=== PATIENT | male | born 1945 | race African-American/Black ===

== ENCOUNTER 2016-10-14 11:15 | Emergency (ER) | payer MEDICARE, OTHER ==
[~2016-10-14] VITALS: Ht 175.3 cm; Wt 86.6 kg
[2016-10-14] MEDS ORDERED: CORTISPORIN EAR10 ML OTIC (11:38)
[2016-10-14] MEDS ORDERED: AMOXICILLIN500 MG ORAL (11:38)
[2016-10-14 11:50] VITALS: BP 127/68
--- NOTE | 2016-10-16 06:10 | Emergency Room Report ---
History of Present Illness General Chief Complaint: Earache Source: Patient Present Illness HPI Patient presents with complaints of pain to the left ear Pain has been ongoing for the past 7 days however he also recently noticed discharge my site Denies any fevers he felt mildly weak Denies any neck pain or photophobia denies any chest pain or shortness of breath denies any trismus Allergies: Coded Allergies: No Known Allergies (Unverified , 10/14/16) Patient History Past Medical History: see triage record Pertinent Family History: none Reviewed Nursing Documentation: PMH: Agreed, PSxH: Agreed Nursing Documentation-PMH Past Medical History: No History, Except For Hx Hypertension: Yes Review of Systems All Other Systems: negative except mentioned in HPI Physical Exam Vital Signs Date Time Temp Pulse Resp B/P Pulse Ox O2 Delivery O2 Flow Rate FiO2 10/14/16 11:36 98.2 95 14 130/71 96 Room Air Sp02 EP Interpretation: reviewed, normal General Appearance: well appearing, no apparent distress Head: normocephalic, atraumatic Eyes: bilateral eye EOMI, bilateral eye PERRL ENT: normal pharynx, no angioedema, other - Tympanic membrane is erythematous and bulging, the canal is edematous with discharge, the swelling also involves the ear lobe itself Neck: supple Respiratory: chest non-tender, lungs clear Cardiovascular #1: regular rate, rhythm Gastrointestinal: non tender, soft Musculoskeletal: normal inspection Neurologic: alert, oriented x3 Skin: other - As noted above with the swelling of the canal of the left ear along with swelling of the ear itself Lymphatic: no adenopathy Medical Decision Making Diagnostic Impression: Primary Impression: otitis media Additional Impression: otitis externa ER Course Patient has significant findings of otitis media and externa At this time placed on the appropriate drops and oral medication Requires close followup Last Vital Signs Date Time Temp Pulse Resp B/P Pulse Ox O2 Delivery O2 Flow Rate FiO2 10/14/16 11:50 98.0 88 17 127/68 98 Room Air Status: unchanged Disposition: HOME, SELF-CARE Condition: Stable Scripts Neomycin/Polymyxin B Sulf/Hc* (CORTISPORIN EAR SOLUTION*) 10 Ml Solution 2 DROP OTIC FOUR TIMES A DAY for 10 Days, #1 EA Instill in affected ear as directed for 7 days Prov: SHAYY COOPER DYazmin 10/14/16 Amoxicillin* (AMOXIL*) 500 Mg Capsule 500 MG ORAL THREE TIMES A DAY, #30 CAP Prov: SHAYY COOPER D.O. 10/14/16 Referrals: NOT CHOSEN IPA/MD,REFERRING Patient Instructions: Otitis Externa, [id number], Otitis Media, Adult Additional Instructions: Patient is provided with the discharge instructions notified to follow up with primary doctor in the next 2-3 days otherwise return to the er with any worsening symptoms. Please note that this report is being documented using [employer] technology. This can lead to erroneous entry secondary to incorrect interpretation by the dictating instrument. SHAYY COOPER D.O. Oct 16, 2016 06:10
== END 2016-10-14 11:50 | disposition home or self-care (01) ==
LOC: EMR 11:40
DX: H66.92 Otitis media, unspecified, left ear (principal); H60.92 Unspecified otitis externa, left ear; I10 Essential (primary) hypertension
CPT/HCPCS: 99282

== ENCOUNTER 2016-10-22 14:43 | Emergency (ER) | payer MEDICARE, OTHER ==
[~2016-10-22] VITALS: Ht 175.3 cm; Wt 86.2 kg
[~2016-10-22 14:43] MED LIST: AMOXICILLIN500 MG ORAL; CORTISPORIN EAR10 ML OTIC
[2016-10-22 15:11] VITALS: BP 136/73
[2016-10-22] MEDS ORDERED: DiphenhydrAMINE 50mg/ml Inj IM ONE (15:15)
[2016-10-22] MEDS ORDERED: PredniSONE 20mg tab ORAL ONE (15:15)
[2016-10-22] MEDS ORDERED: BENADRYL25 MG ORAL (15:35)
[2016-10-22] MEDS ORDERED: DEBROX15 M1 RIGHT EAR (15:35)
[2016-10-22] MEDS ORDERED: CORTISPORIN EAR10 ML LEFT EAR (15:35)
[2016-10-22] MEDS ORDERED: PREDNISONE20 MG ORAL (15:35)
[2016-10-22 16:32] VITALS: BP 134/72
--- NOTE | 2016-10-22 19:36 | Emergency Room Report ---
History of Present Illness General Chief Complaint: Allergic Reaction Source: Patient Present Illness [facility] The patient is a 71-year-old male presenting for left ear pain and possible allergic reaction. The patient was seen for left ear pain and diagnosed with otitis externa. He was given a prescription for Cortisporin and amoxicillin. The patient was taking these medications as recommended but then developed a rash of the face, itchy eyes, and a scratchy throat. He has never had an allergic reaction to medication in the past. He does not know of any allergies. Patient still has a 10 out of 10 dull ache to the left ear and it does not radiate. Pain worse with touch. He denies any changes in hearing. He denies any other symptoms including fever, chills, chest pain, shortness of breath, cough, changes in vision, headache, dizziness Allergies: Coded Allergies: No Known Allergies (Unverified , 10/14/16) Patient History Past Medical History: see triage record Pertinent Family History: none Reviewed Nursing Documentation: PMH: Agreed, PSxH: Agreed Nursing Documentation-PMH Past Medical History: No Stated History Hx Hypertension: Yes Review of Systems All Other Systems: negative except mentioned in HPI Physical Exam Vital Signs Date Time Temp Pulse Resp B/P Pulse Ox O2 Delivery O2 Flow Rate FiO2 10/22/16 14:55 97.9 74 12 136/73 97 Room Air Sp02 EP Interpretation: reviewed, normal General Appearance: no apparent distress, alert, GCS 15, non-toxic Head: normocephalic, atraumatic Eyes: bilateral eye EOMI, bilateral eye Scleral Injection, bilateral eye other - erythema and edema to bilat eyelids ENT: hearing grossly normal, normal pharynx, no angioedema, normal voice, other - L ear EAC edema, erythema, white DC. TTP to tragus Neck: full range of motion, supple/symm/no masses Musculoskeletal: back normal, gait/station normal, normal range of motion, non- tender Neurologic: alert, oriented x3, responsive, motor strength/tone normal, sensory intact, speech normal Psychiatric: judgement/insight normal, memory normal, mood/affect normal, no suicidal/homicidal ideation Skin: normal color, no rash, warm/dry, well hydrated Lymphatic: no adenopathy Medical Decision Making PA Attestation Dr. Navarrete is my supervising physician. Patient management was discussed with my supervising physician Diagnostic Impression: Primary Impression: Cerumen impaction Qualified Codes: H61.21 - Impacted cerumen, right ear Additional Impressions: Allergic reaction Qualified Codes: T78.40XA - Allergy, unspecified, initial encounter Otitis externa of left ear Qualified Codes: H60.332 - Swimmer's ear, left ear ER Course The patient is a 71-year-old male presenting for left ear pain and possible allergic reaction Differential diagnosis include but not limited to allergic reaction, cellulitis , otitis externa, otitis media, mastoiditis, sinusitis, pharyngitis Physical exam: Vitals within normal limits. No apparent distress. HEENT: Left ear external auditory canal is erythematous and edematous. TTP to L tragus.White discharge is noted. Tympanic membrane is intact. No bulging. R ear cerumen impaction There is erythema and edema to bilateral eyelids with conjunctival injection Oropharynx is patent. No tonsillar edema. No angioedema Otherwise exam is unremarkable The patient is given Benadryl and prednisone and is feeling better. The patient will be discharged home with a prescription for Cortisporin. He will stop taking the amoxicillin as this is most likely the cause of the allergic reaction. The patient will take Benadryl and prednisone and continue to use Cortisporin. ER precautions are given Last Vital Signs Date Time Temp Pulse Resp B/P Pulse Ox O2 Delivery O2 Flow Rate FiO2 10/22/16 16:32 97.9 73 16 134/72 97 Room Air Status: improved Disposition: HOME, SELF-CARE Condition: Improved Scripts Diphenhydramine Hcl* (BENADRYL*) 25 Mg Capsule 25 MG ORAL Q6H Y for Itching, #15 CAP Prov: TERZIAN,AMELIE P.A. 10/22/16 Prednisone* (PREDNISONE*) 20 Mg Tablet 40 MG ORAL DAILY, #8 TAB Prov: TERZIAN,AMELIE P.A. 10/22/16 Neomycin/Polymyxin B Sulf/Hc* (CORTISPORIN EAR SOLUTION*) 10 Ml Solution 4 DROP LEFT EAR QID, #10 ML 0 Refills Prov: TERZIAN,AMELIE P.A. 10/22/16 Carbamide Peroxide (DEBROX) 15 Ml Drops 5 DROP RIGHT EAR TWICE A DAY for 4 Days, ML 0 Refills Prov: TERZIAN,AMELIE P.A. 10/22/16 Referrals: NON PHYSICIAN (PCP) Patient Instructions: Cerumen Impaction, Otitis Externa, Drug Allergy Additional Instructions: I discussed my findings with the patient. All questions and concerns have been answered. Treatment and medication compliance have been addressed. I advised the patient that they need to follow up with PMD in 3-5 days. Return to ED if symptoms worsen, new symptoms arise, or if needed for any reason. Patient verbalized understanding of discharge instructions. AMELIE OROZCO October 22, 2016 19:35
== END 2016-10-22 16:35 | disposition home or self-care (01) ==
LOC: EMR 15:28
DX: H61.20 Impacted cerumen, unspecified ear (principal); T78.1XXA Other adverse food reactions, not elsewhere classified, initial encounter; X58.XXXA Exposure to other specified factors, initial encounter; H60.92 Unspecified otitis externa, left ear; I10 Essential (primary) hypertension
CPT/HCPCS: 96372; 99284; J1200

== ENCOUNTER 2017-01-02 11:24 | Emergency (ER) | payer MEDICARE, OTHER ==
[~2017-01-02] VITALS: Ht 175.3 cm; Wt 86.2 kg
[~2017-01-02 11:24] MED LIST changes: +BENADRYL25 MG ORAL; +CORTISPORIN EAR10 ML LEFT EAR; +DEBROX15 M1 RIGHT EAR; +PREDNISONE20 MG ORAL
[2017-01-02 11:40] VITALS: BP 142/79
[2017-01-02 12:17] VITALS: BP 142/79
[2017-01-02] MEDS ORDERED: KEFLEX500 MG ORAL (12:22)
[2017-01-02] MEDS ORDERED: BENADRYL25 M3 PO (12:22)
--- NOTE | 2017-01-02 13:56 | Emergency Room Report ---
History of Present Illness General Chief Complaint: Skin Rash/Abscess Present Illness HPI 71YOM with left lower extremity swelling, redness, warmth and itch ?insect bite No other affected areas Denies DM, history of cellulitis/abscess Allergies: Coded Allergies: No Known Allergies (Unverified , 10/14/16) Patient History Past Medical History: none Past Surgical History: none Pertinent Family History: none Social History: Denies: alcohol use, drug use, smoking Immunizations: UTD Reviewed Nursing Documentation: PMH: Agreed, PSxH: Agreed Nursing Documentation-PMH Hx Hypertension: Yes Review of Systems All Other Systems: negative except mentioned in HPI Physical Exam Vital Signs Date Time Temp Pulse Resp B/P Pulse Ox O2 Delivery O2 Flow Rate FiO2 01/02/17 11:31 98.1 95 20 142/79 100 Room Air Sp02 EP Interpretation: reviewed, normal General Appearance: normal inspection, well appearing, no apparent distress, alert Head: atraumatic ENT: normal ENT inspection, hearing grossly normal, normal voice Neck: normal inspection, full range of motion, supple, no bony tend Respiratory: normal inspection, lungs clear, normal breath sounds, no respiratory distress, no retraction, no wheezing Cardiovascular #1: regular rate, rhythm, no edema Gastrointestinal: normal inspection, normal bowel sounds, non tender, soft, no guarding, no hernia Genitourinary: no CVA tenderness Musculoskeletal: normal inspection, back normal, normal range of motion, Reyna' s Sign negative Neurologic: normal inspection, alert, oriented x3, responsive, comparative sociology professor III-XII nml as tested, motor strength/tone normal, speech normal Psychiatric: normal inspection, judgement/insight normal, mood/affect normal Skin: normal inspection, other - Left outer lower extremity: 5cm area of erythema, palpable warmth Medical Decision Making Diagnostic Impression: Primary Impression: Cellulitis and abscess of left lower extremity ER Course Cellulitis of left lower leg Afebrile. No systemic symptoms Rx Keflex DC home PMD followup Last Vital Signs Date Time Temp Pulse Resp B/P Pulse Ox O2 Delivery O2 Flow Rate FiO2 01/02/17 12:17 98.1 95 20 142/79 100 Room Air Status: improved Disposition: HOME, SELF-CARE Condition: Improved Scripts Diphenhydramine HCl (Benadryl) 25 Mg Capsule 25 MG PO TID for Itching for 7 Days, #30 CAP Prov: DAYANA GARCIA M.D. 01/02/17 Cephalexin* (KEFLEX*) 500 Mg Capsule 500 MG ORAL Q6H for 7 Days, #28 CAP 0 Refills Prov: DAYANA GARCIA M.D. 01/02/17 Referrals: NON PHYSICIAN (PCP) Patient Instructions: Rash, Cellulitis, [id number] DAYANA GARCIA M.D. Jan 02, 2017 13:55
== END 2017-01-02 12:34 | disposition home or self-care (01) ==
LOC: EMR 11:58
DX: L03.116 Cellulitis of left lower limb (principal); I10 Essential (primary) hypertension
CPT/HCPCS: 99284

== ENCOUNTER 2017-03-09 14:55 | Emergency (ER) | payer MEDICARE, OTHER ==
[~2017-03-09] VITALS: Ht 175.3 cm; Wt 84.4 kg
[~2017-03-09 14:55] MED LIST changes: +BENADRYL25 M3 PO; +KEFLEX500 MG ORAL
[2017-03-09] MEDS ORDERED: UNOBMED (15:07)
[2017-03-09] MEDS ORDERED: Azithromycin 250mg tab ORAL ONE (15:30)
[2017-03-09 15:31] VITALS: BP 118/72
[2017-03-09] MEDS ORDERED: KEFLEX500 MG ORAL (16:02)
[2017-03-09] MEDS ORDERED: CLOTRIMAZOLE15 GM TOPIC (16:02)
[2017-03-09 16:08] VITALS: BP 118/72
--- NOTE | 2017-03-11 09:48 | Emergency Room Report ---
History of Present Illness General Chief Complaint: Male Urogenital Problems Source: Patient Present Illness HPI 72-year-old male presents ED for evaluation. Patient states he has a bump on his penis and scrotal area for the last week. Patient was seen by PMD 2 days ago and was prescribed acyclovir. Patient states it is not improving so he came to the ER. Patient states just prior to onset of symptoms she did have unprotected sex. Denies any discharge. States it is painful, 6/10, sharp, nonradiating. No other aggravating relieving factors. Denies any other associated symptoms Allergies: Coded Allergies: PENICILLINS (Verified Allergy, Unknown, 03/09/17) Patient History Past Medical History: HTN Past Surgical History: none Pertinent Family History: none Social History: Denies: smoking, alcohol use, drug use Immunizations: UTD Reviewed Nursing Documentation: PMH: Agreed, PSxH: Agreed Nursing Documentation-PMH Hx Hypertension: Yes Review of Systems All Other Systems: negative except mentioned in HPI Physical Exam Vital Signs Date Time Temp Pulse Resp B/P (MAP) Pulse Ox O2 Delivery O2 Flow Rate FiO2 03/09/17 15:01 97.7 90 16 118/72 96 Room Air Sp02 EP Interpretation: reviewed, normal General Appearance: no apparent distress, alert, GCS 15, non-toxic Head: normocephalic, atraumatic Eyes: bilateral eye normal inspection, bilateral eye PERRL ENT: hearing grossly normal, normal pharynx, no angioedema, normal voice Neck: full range of motion, supple/symm/no masses Respiratory: chest non-tender, lungs clear, normal breath sounds, speaking full sentences Cardiovascular #1: regular rate, rhythm, no edema Cardiovascular #2: 2+ carotid (R), 2+ carotid (L), 2+ radial (R), 2+ radial (L) , 2+ dorsalis pedis (R), 2+ dorsalis pedis (L) Gastrointestinal: normal bowel sounds, non tender, soft, non-distended, no guarding, no rebound Rectal: deferred Genitourinary: no CVA tenderness, other - small papule on penile head. erythematous papules to scrotum. no induration or discharge Musculoskeletal: back normal, gait/station normal, normal range of motion, non- tender Neurologic: alert, oriented x3, responsive, motor strength/tone normal, sensory intact, speech normal Psychiatric: judgement/insight normal, memory normal, mood/affect normal, no suicidal/homicidal ideation Reflexes: 3+ bicep (R), 3+ bicep (L), 3+ tricep (R), 3+ tricep (L), 3+ knee (R) , 3+ knee (L) Skin: normal color, no rash, warm/dry, well hydrated Lymphatic: no adenopathy Medical Decision Making Diagnostic Impression: Primary Impression: Herpes simplex infection of penis ER Course Hospital Course 72-year-old male presents to ED with rash/pain to penis Differential diagnoses include: Cellulitis, dermatitis, insect bite, abscess Clinical course Patient placed on stretcher. After initial history, physical exam reveals an elderly male in no acute distress. On exam there are multiple papular lesions noted to the penis and scrotal area. nonerythematous but nonerythematous base. No discharge. patient was prescribed states it is not helping. I explain to the patient that his symptoms will not resolved in 2 days. Given his history, i believe acyclovir is a good choice of medication and he should continue it. We will administer Rocephin/azithromycin here, discharged on Keflex and clotrimazole recommend followup with PMD next week Diagnosis - herpes simplex infection of penis stable and discharged to home with prescription for Ketoconazole, keflex. continue acyclovir as directed. Instructed to followup with PMD. Instructed return to ED if symptoms recur or worsen Last Vital Signs Date Time Temp Pulse Resp B/P (MAP) Pulse Ox O2 Delivery O2 Flow Rate FiO2 03/09/17 16:08 97.7 72 16 118/72 96 Room Air Status: improved Disposition: HOME, SELF-CARE Condition: Stable Scripts Clotrimazole* (LOTRIMIN*) 15 Gm Cream..g. 1 APPLIC TOPIC TWICE A DAY, #15 GM Prov: KIANA SAAVEDRA M.D. 03/09/17 Cephalexin* (KEFLEX*) 500 Mg Capsule 500 MG ORAL Q6H, #28 CAP 0 Refills Prov: KIANA SAAVEDRA M.D. 03/09/17 Patient Instructions: Herpes Simplex Test KIANA SAAVEDRA M.D. Mar 11, 2017 09:48
== END 2017-03-09 16:09 | disposition home or self-care (01) ==
LOC: EMR 15:40
DX: A60.01 Herpesviral infection of penis (principal); I10 Essential (primary) hypertension; Z88.0 Allergy status to penicillin
CPT/HCPCS: 96372; 99284; J0696

== ENCOUNTER 2017-03-16 11:17 | Emergency (ER) | payer MEDICARE, OTHER ==
[~2017-03-16] VITALS: Ht 175.3 cm; Wt 85.3 kg
[~2017-03-16 11:17] MED LIST changes: +CLOTRIMAZOLE15 GM TOPIC; +UNOBMED
[2017-03-16 11:25] VITALS: BP 149/84
[2017-03-16 12:42] LABS: APPEARANCE,URINE SLIGHTLY CLOUDY; KETONES,URINE 1+ (NEGATIVE); LEUKOCYTE ESTERASE ,URINE 1+ (NEGATIVE); NITRITE,URINE NEGATIVE (NEGATIVE); PH,URINE 6 (4.5-8.0); PROTEIN,URINE 1+ (NEGATIVE); UROBILINOGEN,URINE NORMAL MG/DL (0.0-1.0)
[2017-03-16 12:50] LABS: BACTERIA,URINE FEW /HPF; MUCUS,URINE MODERATE /LPF (NONE/OCC); SQUAMOUS EPITHELIAL CELL,UR FEW /LPF (NONE/OCC)
--- NOTE | 2017-03-16 12:54 | Emergency Room Report ---
History of Present Illness General Chief Complaint: Male Urogenital Problems Source: Patient Present Illness HPI 72 YO Male presents to the ED c/o continued Testicular pruritis despite using previously prescribed Keflex,clotrimazole cream, and taking Acyclovir. pt. states he has follow up appt. with his PCP tomorrow , and is scheduled to have Herpes testing done. pt. states moderate itching continues. Pt. finished both Keflex and clotrimazole cream, he states he still has three more pills of acyclovir to take. pt. denies new skin lesions, denies erythema. pt. states he has also been applying jock itch powder. 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 denies recent intercourse since being previously evaluated here in the ED. Denies testicular pain, swelling, penile discharge, swollen tender lymph nodes. Denies skin color changes. Denies dysuria, hematuria, or frequency. Denies lesions/rashes elsewhere on the body. Denies new medications or body washes or creams. Denies swelling of the lips, tongue , throat or airway. Denies wheezing, or shortness of breath. Denies recent travel, recent illness or ill contacts. denies blisters, oral lesions, or sloughing of the skin. Denies CP, Palpitations, LOC, AMS, dizziness, Changes in Vision, Sensation , paresthesias, or a sudden severe headache. Allergies: Coded Allergies: PENICILLINS (Verified Allergy, Unknown, 03/09/17) Patient History Past Medical History: asthma Past Surgical History: none Pertinent Family History: none Immunizations: UTD Reviewed Nursing Documentation: PMH: Agreed, PSxH: Agreed Nursing Documentation-PMH Hx Hypertension: Yes Review of Systems All Other Systems: negative except mentioned in HPI Physical Exam Vital Signs Date Time Temp Pulse Resp B/P (MAP) Pulse Ox O2 Delivery O2 Flow Rate FiO2 03/16/17 11:25 97.9 95 16 149/84 98 Room Air Sp02 EP Interpretation: reviewed, normal General Appearance: no apparent distress, alert, GCS 15, non-toxic Head: normocephalic, atraumatic Eyes: bilateral eye normal inspection, bilateral eye PERRL ENT: hearing grossly normal, normal voice Neck: full range of motion Respiratory: lungs clear, normal breath sounds, no wheezing, speaking full sentences Cardiovascular #1: regular rate, rhythm Gastrointestinal: normal bowel sounds, non tender, soft, no guarding, no rebound Rectal: deferred Genitourinary: normal inspection, no CVA tenderness, penis normal, other - cremasteric reflux intact bilaterally. no testicular swelling. Musculoskeletal: back normal, gait/station normal, normal range of motion, non- tender Neurologic: alert, oriented x3, responsive, motor strength/tone normal, sensory intact, speech normal, other - cremasteric reflux intact bilaterally. Psychiatric: judgement/insight normal, memory normal, mood/affect normal Skin: normal color, warm/dry, well hydrated, rash - very small superficial mildly macerated appearance to anterior scrotum in an area no more than 1cm, no discrete boarder, or lesion, no vessicles, no blisters. Lymphatic: no adenopathy Medical Decision Making PA Attestation Dr. Epps is my supervising Physician whom patient management has been discussed with. Diagnostic Impression: Primary Impression: Rash and other nonspecific skin eruption Additional Impressions: Dermatitis UTI (urinary tract infection) Qualified Codes: N30.01 - Acute cystitis with hematuria ER Course 72 YO Male presents to the ED c/o continued Testicular Pruritus despite using previously prescribed Keflex,clotrimazole cream, and taking Acyclovir. pt. states he has follow up appt. with his PCP tomorrow , and is scheduled to have Herpes testing done. pt. states moderate itching continues. Pt. finished both Keflex and clotrimazole cream, he states he still has three more pills of acyclovir to take. pt. denies new skin lesions, denies erythema. pt. states he has also been applying jock itch powder. 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 denies recent intercourse since being previously evaluated here in the ED. Denies testicular pain, swelling, penile discharge, swollen tender lymph nodes. Denies skin color changes. Denies dysuria, hematuria, or frequency. Denies lesions/rashes elsewhere on the body. Denies new medications or body washes or creams. Denies swelling of the lips, tongue , throat or airway. Denies wheezing, or shortness of breath. Denies recent travel, recent illness or ill contacts. denies blisters, oral lesions, or sloughing of the skin. Denies CP, Palpitations, LOC, AMS, dizziness, Changes in Vision, Sensation , paresthesias, or a sudden severe headache. Ddx considered but are not limited to cellulitis, scabies, shingles, varicella, dermatitis, urticaria, eczema, tinea, viral exanthem, SJS Vital signs: are WNL, pt. is afebrile H&PE are most consistent with scrotal dermatitis, no lesions, no evidence of secondary infection, no testicular swelling, tenderness, or penile d/c, no LAD. * home care provider: Oz was my aquatic instructor for physical exam ORDERS: -UA: increased WBC's, Leuks, presence of bacteria and mucus consistent with urinary tract infection. ED INTERVENTIONS: None required at this time. -D/w pt. results of his urine testing. encouraged pt. to ask PCP for field auditor referral at tomorrow appt. DISCHARGE: At this time pt. is stable for d/c to home. Will provide printed patient care instructions, and any necessary prescriptions. Care plan and follow up instructions have been discussed with the patient prior to discharge. Labs Test 03/16/17 12:35 Urine Color Yellow Urine Appearance Slightly cloudy Urine pH 6 (4.5-8.0) Urine Specific [place] 1.015 (1.005-1.035) Urine Protein 1+ (NEGATIVE) Urine Glucose (UA) 1+ (NEGATIVE) Urine Ketones 1+ (NEGATIVE) Urine Occult Blood 2+ (NEGATIVE) Urine Nitrite Negative (NEGATIVE) Urine Bilirubin Negative (NEGATIVE) Urine Urobilinogen Normal MG/DL (0.0-1.0) Urine Leukocyte Esterase 1+ (NEGATIVE) Urine RBC 2-4 /HPF (0 - 0) Urine WBC 5-10 /HPF (0 - 0) Urine Squamous Epithelial Cells Few /LPF (NONE/OCC) Urine Bacteria Few /HPF (NONE) Urine Mucus Moderate /LPF (NONE/OCC) Last Vital Signs Date Time Temp Pulse Resp B/P (MAP) Pulse Ox O2 Delivery O2 Flow Rate FiO2 03/16/17 11:25 97.9 95 16 149/84 98 Room Air Disposition: HOME, SELF-CARE Condition: Stable Scripts Nitrofurantoin Monohyd/M-Cryst* (MACROBID 100 MG*) 100 Mg Capsule 100 MG ORAL EVERY 12 HOURS for 5 Days, #10 CAP Prov: Stefani Momin 03/16/17 Hydrocortisone (Hydrocortisone Cream 2.5%) Y Cream.appl 1 APPLIC TP BID, #28.3 GM Prov: Stefani Momin 03/16/17 Nystatin* (NYSTATIN*) 15 Gm Cream..g. 1 APPLIC TOPIC THREE TIMES A DAY, #15 GM 1 Refill Prov: Stefani Momin 03/16/17 Patient Instructions: Rash, [id number], Urinary Tract Infection Additional Instructions: Take medications as directed. Follow up with a Primary Care Provider in 3-5 days, even if your symptoms have resolved. ANALYTICS LEADER EVALUATION IS RECOMMENDED. Return sooner to ED if new symptoms occur, or current symptoms become worse. - Please note that this Emergency Department Report was dictated using [place] [employer] continuity inspector technology software, occasionally this can lead to erroneous entry secondary to interpretation by the dictation equipment. Stefani Momin Mar 16, 2017 12:54
[2017-03-16] MEDS ORDERED: NITROFURANTOIN100 M2 ORAL (13:00)
[2017-03-16] MEDS ORDERED: HYDROCORTISONE30 G2 TP (13:00)
[2017-03-16] MEDS ORDERED: NYSTATIN15 GM TOPIC (13:00)
[2017-03-16 13:11] VITALS: BP 149/84
== END 2017-03-16 13:12 | disposition home or self-care (01) ==
LOC: EMR 13:10
DX: L30.9 Dermatitis, unspecified (principal); N39.0 Urinary tract infection, site not specified; Z88.0 Allergy status to penicillin
CPT/HCPCS: 81003; 99284

== ENCOUNTER 2017-06-11 12:34 | Emergency (ER) | payer MEDICARE, OTHER ==
[~2017-06-11] VITALS: Ht 175.3 cm; Wt 83.0 kg
[~2017-06-11 12:34] MED LIST changes: +HYDROCORTISONE30 G2 TP; +NITROFURANTOIN100 M2 ORAL; +NYSTATIN15 GM TOPIC
[2017-06-11] MEDS ORDERED: FUROSEMIDE40 MG ORAL (12:49)
[2017-06-11] MEDS ORDERED: ASPIRIN EC81 MG ORAL (12:49)
[2017-06-11] MEDS ORDERED: FOLIC ACID1 MG ORAL (12:49)
[2017-06-11] MEDS ORDERED: AVODART0.5 MG ORAL (12:49)
[2017-06-11] MEDS ORDERED: DIAZEPAM10 MG ORAL (12:49)
[2017-06-11] MEDS ORDERED: UNOBMED (12:49)
[2017-06-11 13:13] LABS: APPEARANCE,URINE CLEAR; KETONES,URINE NEGATIVE (NEGATIVE); LEUKOCYTE ESTERASE ,URINE NEGATIVE (NEGATIVE); NITRITE,URINE NEGATIVE (NEGATIVE); PH,URINE 7 (4.5-8.0); PROTEIN,URINE NEGATIVE (NEGATIVE); UROBILINOGEN,URINE NORMAL MG/DL (0.0-1.0)
[2017-06-11] MEDS ORDERED: ACYCLOVIR200 MG ORAL (13:41)
[2017-06-11] MEDS ORDERED: PROAIR HFA8.5 GM INH (13:41)
[2017-06-11] MEDS ORDERED: PROMETHAZINE-D118 ML ORAL (13:41)
[2017-06-11 13:55] VITALS: BP 165/78
--- NOTE | 2017-06-11 22:43 | Emergency Room Report ---
History of Present Illness General Chief Complaint: General Complaint Source: Patient Present Illness HPI The patient is a 72-year-old male presenting for multiple complaints including lesions on penis, cough, and subjective fever. He states that he does have history of herpes and this feels the same. he noticed these lesions yesterday at the tip of his penis. There is a 3/10 burning sensation. Does not radiate. He denies any dysuria or hematuria penile discharge. He has had subjective fever and cough for the past week. He denies any known sick contacts or recent travel. He admits to having asthma but denies any other conditions. Allergies: Coded Allergies: PENICILLINS (Verified Allergy, Unknown, 03/09/17) Patient History Past Medical History: see triage record Pertinent Family History: none Reviewed Nursing Documentation: PMH: Agreed, PSxH: Agreed Nursing Documentation-PMH Hx Hypertension: Yes Review of Systems All Other Systems: negative except mentioned in HPI Physical Exam Vital Signs Date Time Temp Pulse Resp B/P (MAP) Pulse Ox O2 Delivery O2 Flow Rate FiO2 06/11/17 12:38 97.9 87 18 148/84 98 Room Air Sp02 EP Interpretation: reviewed, normal General Appearance: no apparent distress, alert, GCS 15, non-toxic Head: normocephalic, atraumatic Eyes: bilateral eye normal inspection, bilateral eye PERRL ENT: hearing grossly normal, normal pharynx, no angioedema, normal voice Neck: full range of motion, supple/symm/no masses Respiratory: normal inspection, no respiratory distress, no accessory muscle use, wheezing - bilat Cardiovascular #1: regular rate, rhythm, no edema Gastrointestinal: normal bowel sounds, non tender, soft, non-distended, no guarding, no rebound Genitourinary: no CVA tenderness, scrotum normal, other - several herpetic lesion < 1cm at tip of penis Musculoskeletal: back normal, gait/station normal, normal range of motion Neurologic: alert, oriented x3, responsive, motor strength/tone normal, sensory intact, speech normal Psychiatric: judgement/insight normal, memory normal, mood/affect normal, no suicidal/homicidal ideation Skin: warm/dry, well hydrated Lymphatic: no adenopathy Medical Decision Making PA Attestation Dr. Davis is my supervising physician. Patient management was discussed with my supervising physician Diagnostic Impression: Primary Impression: Bronchitis Additional Impression: Herpes ER Course The patient is a 72-year-old male presenting for multiple complaints including lesions on penis, cough, and subjective fever. Differential diagnosis include but not limited to pharyngitis, sinusitis, AOM, bronchitis, PNA Differential diagnoses considered but not limited to: Gonorrhea, Chlamydia, herpes, urinary tract infection, among others PE: afebrile. No tachypnea. No apparent distress. No TTP over maxillary or frontal sinuses. Lungs: diffuse wheezing. No accessory muscle use. No resp distress Heart: RRR, no abnormal heart sounds Ears: external auditory canal clear. Non erythematous. Bilat TM intact. Cone of light present bilat. No bulging of TM. No serous fluid seen. no nasal D/C Nor cervical lymphad No tonsillar exudate. Uvula midline.Oropharynx non erythematous : There are multiple herpetic lesions at the tip of penis. Shallow ulcers. No discharge. Scrotum is unremarkable. Nontender. Skin warm and dry. No rash UA unremarkable The patient will be discharged home with a prescription for Antivirals, albuterol, cough medication, and will be d/c'ed home Laboratory Tests Test 06/11/17 12:50 Urine Color Pale yellow Urine Appearance Clear Urine pH 7 (4.5-8.0) Urine Specific [place] 1.015 (1.005-1.035) Urine Protein Negative (NEGATIVE) Urine Glucose (UA) Negative (NEGATIVE) Urine Ketones Negative (NEGATIVE) Urine Occult Blood Negative (NEGATIVE) Urine Nitrite Negative (NEGATIVE) Urine Bilirubin Negative (NEGATIVE) Urine Urobilinogen Normal MG/DL (0.0-1.0) Urine Leukocyte Esterase Negative (NEGATIVE) Lab Results Impression No signs of infection Last Vital Signs Date Time Temp Pulse Resp B/P (MAP) Pulse Ox O2 Delivery O2 Flow Rate FiO2 06/11/17 13:55 72 16 165/78 98 Room Air 06/11/17 13:55 97.9 Status: improved Disposition: HOME, SELF-CARE Condition: Improved Scripts D-Methorphan Hb/Prometh Hcl* (PROMETHAZINE-DM SYRUP*) 118 Ml Syrup 5 ML ORAL Q6H Y for For Cough, #118 ML 0 Refills Prov: TERZIAMELIE GALEANA P.A. 06/11/17 Albuterol Sulfate* (PROAIR HFA*) 8.5 Gm Hfa.aer.ad 2 PUFFS INH Q6H, #8.5 GM 0 Refills Prov: AMELIE OROZCO 06/11/17 Acyclovir* (ACYCLOVIR*) 200 Mg Capsule 200 MG ORAL FIVE TIMES A DAY, #50 CAP Prov: AMELIE OROZCO 06/11/17 Patient Instructions: Contact Precautions, Genital Herpes, Acute Bronchitis Additional Instructions: I discussed my findings with the patient. All questions and concerns have been answered. Treatment and medication compliance have been addressed. I advised the patient that they need to follow up with PMD in 3-5 days. Return to ED if symptoms worsen, new symptoms arise, or if needed for any reason. Patient verbalized understanding of discharge instructions. AMELIE OROZCO Jun 11, 2017 22:43
== END 2017-06-11 13:55 | disposition home or self-care (01) ==
LOC: EMR 12:58
DX: J40 Bronchitis, not specified as acute or chronic (principal); B00.9 Herpesviral infection, unspecified; I10 Essential (primary) hypertension; Z88.0 Allergy status to penicillin
CPT/HCPCS: 81003; 96360; 99284

== ENCOUNTER 2017-09-15 16:02 | Emergency (ER) | payer MEDICARE, OTHER ==
[~2017-09-15] VITALS: Ht 175.3 cm; Wt 83.0 kg
[~2017-09-15 16:02] MED LIST changes: +ACYCLOVIR200 MG ORAL; +ASPIRIN EC81 MG ORAL; +AVODART0.5 MG ORAL; +DIAZEPAM10 MG ORAL; +FOLIC ACID1 MG ORAL; +FUROSEMIDE40 MG ORAL; +PROAIR HFA8.5 GM INH; +PROMETHAZINE-D118 ML ORAL
[2017-09-15 16:42] VITALS: BP 137/97
[2017-09-15] MEDS ORDERED: PROMETHAZINE-C118 M1 ORAL (17:01)
[2017-09-15] MEDS ORDERED: LEVAQUIN750 MG ORAL (17:01)
[2017-09-15 17:16] VITALS: BP 148/74
--- NOTE | 2017-09-15 17:52 | Emergency Room Report ---
History of Present Illness General Chief Complaint: Flu Like Symptoms Source: Patient Present Illness HPI 72-year-old male presents ED for evaluation. Patient states the last month he' s been having a productive cough, body aches and chills. Afebrile in triage. States cough is productive with yellowish phlegm. Denies chest pain or shortness of breath. States he did receive the flu vaccine this year. Denies sick contacts or recent travel. No other aggravating relieving factors. Denies any other associated symptoms Allergies: Coded Allergies: PENICILLINS (Verified Allergy, Unknown, 03/09/17) Patient History Past Medical History: HTN Past Surgical History: none Pertinent Family History: none Social History: Denies: smoking, alcohol use, drug use Immunizations: UTD Reviewed Nursing Documentation: PMH: Agreed; PSxH: Agreed Nursing Documentation-PMH Past Medical History: No History, Except For Hx Hypertension: Yes Review of Systems All Other Systems: negative except mentioned in HPI Physical Exam Vital Signs Date Time Temp Pulse Resp B/P (MAP) Pulse Ox O2 Delivery O2 Flow Rate FiO2 09/15/17 16:08 98.2 85 18 149/89 96 Room Air 98.2 Sp02 EP Interpretation: reviewed, normal General Appearance: no apparent distress, alert, GCS 15, non-toxic Head: normocephalic, atraumatic Eyes: bilateral eye normal inspection, bilateral eye PERRL ENT: hearing grossly normal, normal pharynx, no angioedema, normal voice Neck: full range of motion, supple/symm/no masses Respiratory: chest non-tender, normal breath sounds, crackles, speaking full sentences Cardiovascular #1: regular rate, rhythm, no edema Cardiovascular #2: 2+ carotid (R), 2+ carotid (L), 2+ radial (R), 2+ radial (L) , 2+ dorsalis pedis (R), 2+ dorsalis pedis (L) Gastrointestinal: normal bowel sounds, non tender, soft, non-distended, no guarding, no rebound Rectal: deferred Genitourinary: normal inspection, no CVA tenderness Musculoskeletal: back normal, gait/station normal, normal range of motion, non- tender Neurologic: alert, oriented x3, responsive, motor strength/tone normal, sensory intact, speech normal Psychiatric: judgement/insight normal, memory normal, mood/affect normal, no suicidal/homicidal ideation Reflexes: 3+ bicep (R), 3+ bicep (L), 3+ tricep (R), 3+ tricep (L), 3+ knee (R) , 3+ knee (L) Skin: normal color, no rash, warm/dry, well hydrated Lymphatic: no adenopathy Medical Decision Making Diagnostic Impression: Primary Impression: Pneumonia Qualified Codes: J18.1 - Lobar pneumonia, unspecified organism ER Course Hospital Course 72-year-old male presents ED complaining of bodyaches, chills and cough x1 month Differential diagnoses include: URI, pharyngitis, otitis media, asthma Clinical course Patient placed on stretcher. After initial history, physical exam reveals an elderly in no acute distress. Bilateral TM unremarkable. No pharyngeal erythema. No tonsillar exudates. No lymphadenopathy. faint crackles in L lower lung base. abdomen soft. CXR shows atelectasis in L lower lung field. possible pneumonia. discussed findings with patient. I will prescribe abx Diagnosis - pneumonia Stable and discharged home with Rx Levaquin, Promethazine/codeine Instructed to followup with PMD. Return to ED if symptoms recur or worsen Last Vital Signs Date Time Temp Pulse Resp B/P (MAP) Pulse Ox O2 Delivery O2 Flow Rate FiO2 09/15/17 17:16 98.7 78 16 148/74 99 Room Air 98.2 Status: improved Disposition: HOME, SELF-CARE Condition: Stable Scripts Codeine/Promethazine Hcl* (PROMETHAZINE-CODEINE SYRUP*) 118 Ml Syrup 5 ML ORAL Q6H PRN for For Cough, #118 ML 0 Refills Prov: Joo Lee MD 09/15/17 Levofloxacin* (LEVAQUIN*) 750 Mg Tablet 750 MG ORAL DAILY, #7 TAB Prov: Joo Lee MD 09/15/17 Patient Instructions: Community-Acquired Pneumonia, Adult, [id number] Joo Lee MD Sep 15, 2017 17:52
--- NOTE | 2017-09-16 08:18 | Diagnostic Imaging Report ---
Indication: Cough Technique: XRAY Chest 1v Comparison: None Findings: Heart size and mediastinal contours within normal limits for technique. There is patchy opacification at the left base with possible small left pleural effusion. There is no pneumothorax. There is degenerative change of the spine. Extensive degenerative changes of the bilateral shoulders also seen. No acute osseous abnormality seen. Impression: Patchy left basilar opacities with questionable small left pleural effusion. Findings are most concerning for pneumonia given history of cough. Clinical correlation and follow-up exam recommended. This corresponds the preliminary interpretation of the treating ER physician, as documented in the electronic medical record.
== END 2017-09-15 17:18 | disposition home or self-care (01) ==
LOC: EMR 16:25
DX: J18.9 Pneumonia, unspecified organism (principal); I10 Essential (primary) hypertension; Z88.0 Allergy status to penicillin
CPT/HCPCS: 71045; 99284

== ENCOUNTER 2018-10-04 18:29 | Emergency (ER) | payer MEDICARE, OTHER ==
[~2018-10-04] VITALS: Ht 175.3 cm; Wt 84.8 kg
[~2018-10-04 18:29] MED LIST changes: +LEVAQUIN750 MG ORAL; +PROMETHAZINE-C118 M1 ORAL
[2018-10-04 19:10] VITALS: BP 130/74
--- NOTE | 2018-10-04 19:10 | NUR ---
ED Nurse Note: RECEIVED PATIENT FROM LIAM KABA. PATIENT AO4 NAD. ERMD AT BEDSIDE. PATIENT REFUSING ALL CARE; WANTS TO GO HOME.
[2018-10-04] MEDS ORDERED: Furosemide 40mg tab ORAL ONE (19:15)
[2018-10-04 19:30] VITALS: BP 130/74
--- NOTE | 2018-10-04 19:30 | NUR ---
AMA: SEE AMA FORM.
--- NOTE | 2018-10-06 08:55 | Emergency Room Report ---
History of Present Illness General Chief Complaint: Pain Source: Patient Present Illness HPI Patient presents with complaints of right leg swelling and mild redness Patient reports that he was recently and 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 who is also a jukebox route driver Denies any fevers chills patient reports that he was ruled out for blood clot He was also given water pills Allergies: Coded Allergies: PENICILLINS (Verified Allergy, Unknown, 03/09/17) Patient History Past Medical History: see triage record Pertinent Family History: none Reviewed Nursing Documentation: PMH: Agreed; PSxH: Agreed Nursing Documentation-PMH Past Medical History: No History, Except For Hx Hypertension: Yes Review of Systems All Other Systems: negative except mentioned in HPI Physical Exam Vital Signs Date Time Temp Pulse Resp B/P (MAP) Pulse Ox O2 Delivery O2 Flow Rate FiO2 10/04/18 18:46 98.2 81 16 130/74 96 Room Air Sp02 EP Interpretation: reviewed, normal General Appearance: well appearing, no apparent distress Head: normocephalic, atraumatic Eyes: bilateral eye PERRL, bilateral eye EOMI ENT: normal pharynx, no angioedema Neck: supple Respiratory: lungs clear, no respiratory distress, no retraction Cardiovascular #1: regular rate, rhythm Gastrointestinal: non tender Musculoskeletal: swelling - Bilateral lower extremity, worse on the right side Neurologic: alert, oriented x3, responsive Skin: other - Edema in both lower extremity, worse on the right lower shimmery associated with some erythema as well Medical Decision Making Diagnostic Impression: Primary Impression: AMA Additional Impression: Edema ER Course Given the patient's history and presentation multiple differentials are considered Including but not limited to DVT, cellulitis Vascular insufficiency, electrolyte abnormality cardiac, cardiopulmonary disease Patient requires further venous ultrasound of the lower extremity extensive blood work After discussion patient reports that he just recently had all of these tests performed does not want to have been repeated He understands that if a blood clot is present or if other diagnoses are not made here recently to worsening symptoms and possible Patient requesting to be let go He is in appropriate decision making capacity patient's friend also here understands all that is discussed and leading AGAINST MEDICAL ADVICE he reports that he is seeing his primary physician tomorrow and will follow closely Rhythm Strip Diag. Results EP Interpretation: yes Rate: 77 Rhythm: NSR, no PVC's, no ectopy Last Vital Signs Date Time Temp Pulse Resp B/P (MAP) Pulse Ox O2 Delivery O2 Flow Rate FiO2 10/04/18 19:30 98.2 16 130/74 96 Room Air 10/04/18 19:10 86 Status: unchanged Disposition: AGAINST MEDICAL ADVICE Condition: Unknown Referrals: NON PHYSICIAN (PCP) Jared Fernando DO Oct 06, 2018 08:55
== END 2018-10-04 19:30 | disposition home or self-care (01) ==
LOC: EMR 18:54
DX: R60.9 Edema, unspecified (principal); Z88.0 Allergy status to penicillin; I10 Essential (primary) hypertension
CPT/HCPCS: 93005; 99282

== ENCOUNTER 2018-10-06 18:07 | Emergency (ER) | payer MEDICARE, OTHER ==
[~2018-10-06] VITALS: Ht 175.3 cm; Wt 84.4 kg
[2018-10-06 18:15] VITALS: BP 135/83
--- NOTE | 2018-10-06 18:20 | NUR ---
ED Nurse Note: Patient walked into ED from home with his cousin due to right leg swelling and pain. patient reports he was recently treated at [facility] for the same condition, hospitalized for 3 days 09/26/18-09/28/18. Patient reports increased swelling and increased pain. patient reports appointment with tool procurement coordinator on 10/12/18. patient is alert awake x4 ambulatory breathing unlabored and even. cousin at bedside.
[2018-10-06] MEDS ORDERED: LOTREL1 CAP ORAL (18:25)
[2018-10-06] MEDS ORDERED: TRAMADOL HCL50 MG ORAL (18:25)
--- NOTE | 2018-10-06 18:45 | NUR ---
ED Nurse Note: blood sent to lab
--- NOTE | 2018-10-06 18:55 | NUR ---
ED Nurse Note: U/S at bedside
[2018-10-06] MEDS ORDERED: FLOMAX0.4 MG ORAL (18:58)
[2018-10-06] MEDS ORDERED: IBUPROFEN600 MG ORAL (18:58)
[2018-10-06] MEDS ORDERED: ACIDOPHILUS PR1 EACH PO (18:59)
[2018-10-06] MEDS ORDERED: MELOXICAM7.5 MG PO (18:59)
[2018-10-06 19:04] LABS: BASOPHILS % (AUTO) 2.6 % (0.0-2.0); HEMATOCRIT 39.3 % (42.0-52.0); HEMOGLOBIN 13.6 G/DL (14.2-18.0); LYMPHOCYTES % (AUTO) 16.3 % (20.0-45.0); MEAN CORPUSCULAR VOLUME 82 FL (80-99); MONOCYTES % (AUTO) 6.1 % (1.0-10.0); PLATELET COUNT 253 K/UL (150-450); RED BLOOD COUNT 4.76 M/UL (4.70-6.10); RED CELL DISTRIBUTION WIDTH 11.1 % (11.6-14.8); WHITE BLOOD COUNT 9.1 K/UL (4.8-10.8)
--- NOTE | 2018-10-06 19:04 | NUR ---
HAND-OFF: Report given to Lisa WHEELER. patient in stable condition.
--- NOTE | 2018-10-06 19:05 | NUR ---
ED Nurse Note: Patient currently undergoing duplex at bedside.
[2018-10-06 19:15] LABS: ANION GAP 12 mmol/L (5-15); BLOOD UREA NITROGEN 21 mg/dL (7-18); CARBON DIOXIDE 26 MMOL/L (21-32); CHLORIDE 101 MMOL/L (98-107); CREATININE 1.3 MG/DL (0.55-1.30); POTASSIUM 3.9 MMOL/L (3.5-5.1); SODIUM 139 MMOL/L (136-145)
[2018-10-06 19:19] LABS: ALANINE AMINOTRANSFERASE 34 U/L (12-78); ALBUMIN 3.5 G/DL (3.4-5.0); ALBUMIN/GLOBULIN RATIO 0.7 (1.0-2.7); ALKALINE PHOSPHATASE 87 U/L (46-116); ASPARTATE AMINO TRANSFERASE 18 U/L (15-37); BILIRUBIN,TOTAL 0.3 MG/DL (0.2-1.0)
--- NOTE | 2018-10-06 19:21 | NUR ---
ED Nurse Note: Patient resting comfortably with friend at bedside, vital signs within normal range.
[2018-10-06 19:38] VITALS: BP 140/67
--- NOTE | 2018-10-06 19:52 | Diagnostic Imaging Report ---
EXAM: US Duplex Right Lower Extremity Veins CLINICAL HISTORY: MARY CARMEN TECHNIQUE: Real-time duplex ultrasound scan of the right lower extremity veins integrating B-mode two-dimensional vascular structure, Doppler spectral analysis, color flow Doppler imaging and compression. COMPARISON: No relevant prior studies available. FINDINGS: Deep veins: The right anterior tibial vein is not visualized due to edema. No DVT in the visualized common femoral, femoral, proximal deep femoral or popliteal veins. The veins demonstrate normal color flow, are normally compressible, with normal phasic flow and/or augmentation response. Superficial veins: Unremarkable. No thrombus in the visualized great saphenous vein. Soft tissues: Some subcutaneous edema is seen in the right calf. No popliteal cyst. IMPRESSION: No evidence for DVT in the visualized portions of the veins of the right lower extremity. Nonspecific subcutaneous edema in the calf.
--- NOTE | 2018-10-06 20:15 | NUR ---
ED Nurse Note: IV antibiotics complete, patient currently voiding and awaiting discharge paperwork.
[2018-10-06] MEDS ORDERED: CLINDAMYCIN HC300 MG ORAL (20:29)
--- NOTE | 2018-10-06 20:39 | NUR ---
ED Nurse Note: Patient cleared for discharge by ERMD, no s/s of acute distress. Patient verbalized understanding of discharge instructions, ID band removed, Susan removed. Patient ambulatory with steady gait. Patient was accompanied by his friend upon departure and he exited with all his belongings.
[2018-10-06 20:42] VITALS: BP 136/76
--- NOTE | 2018-10-06 21:54 | Emergency Room Report ---
History of Present Illness General Chief Complaint: Skin Rash/Abscess Source: Patient Present Illness HPI 73-year-old male presents ED for evaluation. Complaining of right leg pain and swelling. States that he was seen at [facility] earlier this month for same thing and was told he had an infection. Was admitted for IV antibiotics. States that symptoms improved somewhat but swelling is gotten worse since. States he finished antibiotics. Pain is dull, 7 out of 10, nonradiating. Denies fevers or chills. Denies chest pain or shortness of breath. No other aggravating relieving factors. Denies any other associated symptoms Allergies: Coded Allergies: PENICILLINS (Verified Allergy, Unknown, 03/09/17) Pork (Verified Allergy, Unknown, 10/06/18) Patient History Past Medical History: HTN Past Surgical History: none Pertinent Family History: none Social History: Denies: smoking, alcohol use, drug use Immunizations: UTD Reviewed Nursing Documentation: PMH: Agreed; PSxH: Agreed Nursing Documentation-PMH Past Medical History: No History, Except For Hx Cardiac Problems: No - neck injury, arthritis, BPH Hx Hypertension: Yes Hx Pacemaker: No Hx Asthma: No Hx COPD: No Hx Diabetes: No Hx Cancer: No Hx Gastrointestinal Problems: No Hx Dialysis: No History Of Psychiatric Problem: No Hx Neurological Problems: No Hx Cerebrovascular Accident: No Hx Seizures: No Review of Systems All Other Systems: negative except mentioned in HPI Physical Exam Vital Signs Date Time Temp Pulse Resp B/P (MAP) Pulse Ox O2 Delivery O2 Flow Rate FiO2 10/06/18 18:15 98.1 87 14 135/83 96 Room Air Sp02 EP Interpretation: reviewed, normal General Appearance: no apparent distress, alert, GCS 15, non-toxic Head: normocephalic, atraumatic Eyes: bilateral eye normal inspection, bilateral eye PERRL ENT: hearing grossly normal, normal pharynx, no angioedema, normal voice Neck: full range of motion, supple/symm/no masses Respiratory: chest non-tender, lungs clear, normal breath sounds, speaking full sentences Cardiovascular #1: regular rate, rhythm, no edema Cardiovascular #2: 2+ carotid (R), 2+ carotid (L), 2+ radial (R), 2+ radial (L) , 2+ dorsalis pedis (R), 2+ dorsalis pedis (L) Gastrointestinal: normal bowel sounds, non tender, soft, non-distended, no guarding, no rebound Rectal: deferred Genitourinary: normal inspection, no CVA tenderness Musculoskeletal: back normal, gait/station normal, normal range of motion, swelling - RLE Neurologic: alert, oriented x3, responsive, motor strength/tone normal, sensory intact, speech normal Psychiatric: judgement/insight normal, memory normal, mood/affect normal, no suicidal/homicidal ideation Reflexes: 3+ bicep (R), 3+ bicep (L), 3+ tricep (R), 3+ tricep (L), 3+ knee (R) , 3+ knee (L) Skin: other - RLE, erythematous, warm to touch, no fluctuance or discharge Lymphatic: no adenopathy Medical Decision Making Diagnostic Impression: Primary Impression: Cellulitis of lower extremity Qualified Codes: L03.115 - Cellulitis of right lower limb ER Course Hospital Course 73-year-old male presents to ED with redness, swelling to RLE Differential diagnoses include: Cellulitis, DVT, abscess, rash. Clinical course Patient placed on stretcher. After initial history and physical I ordered labs , Venous Duplex RLE labs reviewed - no leukocytosis, Hb/Hct stable, no electrolyte abnormalities. Doppler US - no evidence of DVT Discussed findings with patient. I gave option for admission given that his swelling has not since resolved. But patient declined stating he would prefer to be discharged. Patient afebrile, nontoxic appearing. No leukocytosis. Patient was on Augmentin previously. We'll try clindamycin. Given IV clindamycin here. We'll discharge with clindamycin. Patient states he has a PMD will follow-up with Diagnosis - cellulitis of lower extremity Stable and discharged to home with prescription for clindamycin. Follow-up with PMD. Return to ED if symptoms recur or worsen Labs Test 10/06/18 18:51 White Blood Count 9.1 K/UL (4.8-10.8) Red Blood Count 4.76 M/UL (4.70-6.10) Hemoglobin 13.6 G/DL (14.2-18.0) Hematocrit 39.3 % (42.0-52.0) Mean Corpuscular Volume 82 FL (80-99) Mean Corpuscular Hemoglobin 28.6 PG (27.0-31.0) Mean Corpuscular Hemoglobin Concent 34.7 G/DL (32.0-36.0) Red Cell Distribution Width 11.1 % (11.6-14.8) Platelet Count 253 K/UL (150-450) Mean Platelet Volume 7.0 FL (6.5-10.1) Neutrophils (%) (Auto) 73.0 % (45.0-75.0) Lymphocytes (%) (Auto) 16.3 % (20.0-45.0) Monocytes (%) (Auto) 6.1 % (1.0-10.0) Eosinophils (%) (Auto) 2.0 % (0.0-3.0) Basophils (%) (Auto) 2.6 % (0.0-2.0) Sodium Level 139 MMOL/L (136-145) Potassium Level 3.9 MMOL/L (3.5-5.1) Chloride Level 101 MMOL/L (98-107) Carbon Dioxide Level 26 MMOL/L (21-32) Anion Gap 12 mmol/L (5-15) Blood Urea Nitrogen 21 mg/dL (7-18) Creatinine 1.3 MG/DL (0.55-1.30) Estimat Glomerular Filtration Rate mL/min (>60) Glucose Level 143 MG/DL (74-106) Calcium Level 10.0 MG/DL (8.5-10.1) Total Bilirubin 0.3 MG/DL (0.2-1.0) Aspartate Amino Transf (AST/SGOT) 18 U/L (15-37) Alanine Aminotransferase (ALT/SGPT) 34 U/L (12-78) Alkaline Phosphatase 87 U/L (46-116) Troponin I 0.015 ng/mL (0.000-0.056) Total Protein 8.5 G/DL (6.4-8.2) Albumin 3.5 G/DL (3.4-5.0) Globulin 5.0 g/dL Albumin/Globulin Ratio 0.7 (1.0-2.7) CT/MRI/US Diagnostic Results CT/MRI/US Diagnostic Results : Imaging Test Ordered: venous duplex RLE Impression no evidence of DVT Last Vital Signs Date Time Temp Pulse Resp B/P (MAP) Pulse Ox O2 Delivery O2 Flow Rate FiO2 10/06/18 20:42 98.1 76 16 136/76 100 Room Air Status: improved Disposition: HOME, SELF-CARE Condition: Stable Scripts Clindamycin Hcl (CLINDAMYCIN HCL) 300 Mg Capsule 300 MG ORAL THREE TIMES A DAY, #21 CAP Prov: Joo Lee MD 10/06/18 Patient Instructions: Cellulitis, [id number] Joo Lee MD Oct 06, 2018 21:54
== END 2018-10-06 20:44 | disposition home or self-care (01) ==
LOC: EMR 18:36
DX: L03.116 Cellulitis of left lower limb (principal); I10 Essential (primary) hypertension
CPT/HCPCS: 36415; 80053; 84484; 85025; 93971; 96361; 96365; 99284; S0077